=== PATIENT | male | born 1975 | race Caucasian/White ===

== ENCOUNTER → 2017-12-20 | Outpatient (CLI) | payer BC ==
--- NOTE | 2017-12-20 11:31 | CONS ---
CONSULTATION DATE OF SERVICE: 12/20/2017. This 42-year-old gentleman has been evaluated in the sleep center for possible obstructive sleep apnea-hypopnea syndrome. HISTORY OF PRESENT ILLNESS/SLEEP WAKE EVALUATION: Patient usual sleep schedule on working days from around 10 p.m. until 6 a.m. and on the weekends from about 10 p.m. until 7 or 8 a.m. Sometimes he has problem with falling asleep, although no TV in bedroom. He sleeps with his in different positions with loud snoring and witnessed episodes of stopped breathing during the sleep with awakenings up to 10 times from sleep with one episode of nocturia, episodes of grinding teeth, awakenings with dry mouth. In the morning, patient wakes up tired, has difficulties to pay attention, problems with concentration. [place] Sleepiness Scale is 4. Patient had home sleep apnea test about 2 years ago in another institution. The patient has been told that results are borderline. PAST MEDICAL HISTORY: Positive for hypertension, depression, anxiety. PAST SURGICAL HISTORY: Hernia repair. MEDICATIONS: Celexa, hydrochlorothiazide. SOCIAL HISTORY: Negative for smoking or using alcohol at the present time: FAMILY HISTORY: Hypertension, heart problems, hyperlipidemia, stroke, arthritis, asthma, sinus problems, snoring, pneumonia, cancer, bronchitis, acid reflux, diabetes, mental illness, restless legs. REVIEW OF SYSTEMS: Multiple awakenings from sleep. No fevers. No double vision. No recent chest pain. No shortness of breath. No abdominal pain. No bleeding episodes. No blood in urine. No seizure episodes. PHYSICAL EXAM: During physical exam, a gentleman without distress. VITAL SIGNS: BP 145/94, HR 62, RR 16, height 5 feet 7 inches, weight 253, BMI 39.6, temperature 97.9. HEENT: PERRLA, EOMI. Oropharynx, a very small oropharyngeal air space, low soft palate, pillars, tonsils in the throat. Slight restriction of nasal breathing. NECK: Supple, no JVD. Thyroid is not palpable. LUNGS: Clear to percussion and to auscultation. Good air exchange. No wheezing or rhonchi. HEART: S1, S2 regular. No murmurs, gallops, or rubs. ABDOMEN: Obese. EXTREMITIES: No clubbing or cyanosis. STORE SALES CONSULTANT: Awake, alert, and oriented X3. Cranial nerves 2 to 7 intact. There is no fasciculation or atrophy. noted. No focal deficits observed. IMPRESSION: 1. Snoring, witnessed episodes of stopped breathing during the sleep. Small oropharyngeal air space, wide neck 17-1/2 inches, obstructive sleep apnea-hypopnea syndrome. 2. Obesity, body mass index 39.6. 3. Hypertension. 4. History of depression. 5. History of anxiety. 6. Status post hernia repair. PLAN: 1. Polysomnography for evaluation of patient's breathing during sleep. Patient had a home sleep apnea test about 2 years ago. It was borderline. 2. CPAP/BiPAP titration if sleep study confirms obstructive sleep apnea-hypopnea syndrome. 3. Preferable position during sleep on the side. 4. No driving if patient feels any sleepiness. Patient is aware of civil and criminal liability for unsafe driving. 5. I will see patient for follow up visit to explain results of testing and following plan. Thank you very much for referring this patient for consultation. Sincerely, Royal Mcpherson MD, PhD, FAASM Diplomat of [place] [employer] [place] [employer] Manager of [facility] MMODL / IJN: [id number] /
== END | disposition home or self-care (01) ==
LOC: SLEEP 10:01
PROVIDERS: ATTEND Internal Medicine
DX: G47.33 Obstructive sleep apnea (adult) (pediatric) (principal); E66.9 Obesity, unspecified; I10 Essential (primary) hypertension; Z68.39 Body mass index [BMI] 39.0-39.9, adult; Z98.890 Other specified postprocedural states; Z86.59 Personal history of other mental and behavioral disorders; Z79.899 Other long term (current) drug therapy
CPT/HCPCS: 99211

== ENCOUNTER → 2018-04-04 | Outpatient (CLI) | payer BC ==
--- NOTE | 2018-04-04 16:19 | PN ---
PROGRESS NOTE DATE OF SERVICE: 04/04/2018 This patient is a 42-year-old gentleman who has been followed in the sleep center for treatment of obstructive sleep apnea-hypopnea syndrome. Recently patient had a polysomnogram and CPAP titration, and I discussed results of his sleep studies with the patient in detail. He has severe sleep apnea. Subsequently he was started on treatment with CPAP. Today is his first follow-up visit when he comes for followup with his CPAP unit. The patient was able to use CPAP equipment every night without significant problem. He did a little bit of a problem with the humidification, but after adjustments of humidity, he feels fine. He sleeps better with the machine than before. He feels more refreshed in the morning and not sleepy during the day. [place] Sleepiness Scale today is 3. I checked his CPAP unit. It is in automatic regimen between 5 and 18 cm of water. Most of the time pressure is 16.9 cm of water. Leak is 14 L/minute, which is acceptable. Apnea-hypopnea index for the last month was only 3.3, which is totally normal. CURRENT MEDICATIONS: 1. Celexa. 2. Hydrochlorothiazide. PHYSICAL EXAMINATION: GENERAL A pleasant gentleman without distress. VITAL SIGNS: BP 137/78, HR 97, RR 16, weight 266, temperature 98.9, oxygen saturation at room air 97%. HEENT: PERRLA, EOMI. Evaluation of oropharynx showed tongue protrudes midline; extremely low position of soft palate. NECK: Supple. No JVD. Thyroid is not palpable. LUNGS: Clear to percussion and to auscultation. Good air exchange. No wheezing or rhonchi. HEART: S1, S2 regular. No murmurs, gallops or rubs. ABDOMEN: Obese. EXTREMITIES : No clubbing or cyanosis. COST ESTIMATING CLERK: Awake, alert, and oriented X3. Cranial nerves 2 to 7 intact. There is no fasciculation or atrophy. noted. No focal deficits observed. Usage of the machine was 29 out of 30 nights for more than 4 hours, average 6.7 hours. IMPRESSION: 1. Severe obstructive sleep apnea-hypopnea syndrome; apnea-hypopnea index 79.7 with oxygen desaturation to 72.1%, under control with CPAP. Patient demonstrated 100% compliance with treatment, benefitting from treatment. 2. Obesity. 3. Hypertension. 4. History of depression. 5. History of anxiety. 6. Status post hernia repair. PLAN: 1. Patient will continue to use his CPAP equipment every night for the whole night. 2. Losing weight. 3. Sleep hygiene with regular time in bed for at least 8 hours. 4. No driving if feeling any sleepiness. 5. He will follow up with the prescription for all necessary CPAP supplies. 6. Follow-up visit in one year, or earlier if patient has any problems. Thank you very much for allowing me to participate in the management of your patient. Sincerely, Royal Mcpherson MD, PhD, FAASM Diplomat of [place] [employer] [place] Legal Associate of [facility] MMODL / IJN: [id number] /
== END | disposition home or self-care (01) ==
LOC: SLEEP 14:29
PROVIDERS: ATTEND Internal Medicine
DX: G47.33 Obstructive sleep apnea (adult) (pediatric) (principal); E66.9 Obesity, unspecified; I10 Essential (primary) hypertension; F32.9 Major depressive disorder, single episode, unspecified; F41.9 Anxiety disorder, unspecified; Z79.899 Other long term (current) drug therapy; Z98.890 Other specified postprocedural states; Z99.89 Dependence on other enabling machines and devices

== ENCOUNTER 2018-12-17 20:39 | Emergency (ER) | payer BC ==
[2018-12-17] MEDS ORDERED: IPRATROPIUM-ALBUTEROL 3 ML NEB INHALATION STA (21:04)
--- NOTE | 2018-12-17 21:25 | XR ---
EXAMINATION: XR chest 2V DATE AND TIME: 12/17/2018 9:11 PM CLINICAL INDICATION: Worsening dyspnea and cough. TECHNIQUE: Departmental protocol COMPARISON: None FINDINGS: The lungs are nearly entirely clear bilaterally, except for peribronchial added opacity in the retroc ardiac left lower lobe. The pleural spaces are negative. The cardiac silhouette is not enlarged. The remainder of the mediastinal silhouette is unremarkable. The skeletal structures and soft tissues are negative for acute findings. IMPRESSION: FINDINGS SUGGEST BRONCHOPNEUMONIA OF THE LEFT LOWER LOBE. 6 week follow-up chest radiographs could prove resolution.
[2018-12-17] MEDS ORDERED: AZITHROMYCIN 500 MG TAB PO STA (22:13)
--- NOTE | 2018-12-17 22:15 | ED ---
URI HPI - General Chief Complaint: Upper Respiratory Infection Stated Complaint: Flu, chest tightness, SOB Time Seen by Provider: 12/17/18 20:47 Source: patient, family Mode of arrival: wheelchair Limitations: no limitations - History of Present Illness Initial Comments: 43-year-old male patient presents to the emergency department today for complaints of cough, chest tightness, and shortness of breath. Patient states that he began with upper respiratory symptoms on which included cough, nasal congestion, sore throat, and fever. Patient states he was seen and evaluated urgent care on Sunday was diagnosed with influenza A and discharge with prescriptions for steroids and cough remedies. Patient states he has been taking the medications as directed and even started feeling better yesterday however when he woke this morning he had increased chest tightness, worsening cough, and shortness of breath. Patient states he has also had fevers increasing throughout the day. He denies any use of bronchodilators. 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 Denies any sputum production or hemoptysis. Denies any palpitations or racing heart. Patient denies any recent rash, chest pain, abdominal pain, nausea, vomiting, diarrhea, constipation, back pain, numbness, tingling, dizziness, weakness, hematuria, dysuria, urinary urgency, urinary frequency, headache, visual changes, or any other complaints. - Related Data Home Medications Medication Instructions Recorded Confirmed Acetaminophen Tab [Tylenol Tab] 650 mg PO Q4H PRN 12/17/18 12/17/18 Amoxic-Pot Clav 500-125 mg 1 tab PO TID 12/17/18 12/17/18 [Augmentin 500-125 mg] Citalopram Hydrobromide [CeleXA] 20 mg PO DAILY 12/17/18 12/17/18 Dextromethorphan Polistirex 60 mg PO HS PRN 12/17/18 12/17/18 [Delsym] Fluticasone Nasal Lula [Flonase 1 spray EA NOSTRIL BID 12/17/18 12/17/18 Nasal Lula] Hydrochlorothiazide [Hydrodiuril] 25 mg PO DAILY 12/17/18 12/17/18 Ibuprofen [Motrin Ib] 800 mg PO Q4H PRN 12/17/18 12/17/18 guaiFENesin [Mucinex] 600 mg PO DAILY PRN 12/17/18 12/17/18 predniSONE 40 mg PO DAILY 12/17/18 12/17/18 Previous Rx's Medication Instructions Recorded Albuterol Sulfate [Proair Hfa] 1 - 2 puff INHALATION Q6HR PRN #1 12/17/18 inhaler Azithromycin [Zithromax Z-pack] 0 mg PO DIRECTED #6 tab 12/17/18 Ipratropium-Albuterol Nebulize 3 ml INHALATION Q4H PRN #30 neb 12/17/18 [Duoneb 0.5 mg-3 mg/3 ml Soln] Allergies Allergy/AdvReac Type Severity Reaction Status Date / Time No Known Allergies Allergy Verified 12/17/18 21:58 Review of Systems ROS Statement: Those systems with pertinent positive or pertinent negative responses have been documented in the HPI. ROS Other: All systems not noted in ROS Statement are negative. Past Medical History Past Medical History: Hypertension History of Any Multi-Drug Resistant Organisms: None Reported Past Surgical History: Hernia Repair Past Psychological History: Depression Smoking Status: Former smoker Past Alcohol Use History: None Reported Past Drug Use History: None Reported General Exam Limitations: no limitations General appearance: alert, in no apparent distress, other (This is a well- developed, well-nourished adult male patient in no acute distress. Vital signs upon presentation are temperature 99.4F, pulse 78, respirations 20, blood pressure 151/90, pulse ox 95% on room air.) Eye exam: Present: normal appearance, PERRL, EOMI. Absent: scleral icterus, conjunctival injection, periorbital swelling ENT exam: Present: normal exam, normal oropharynx, mucous membranes moist, TM's normal bilaterally Neck exam: Present: normal inspection. Absent: tenderness, meningismus, lymphadenopathy Respiratory exam: Present: normal lung sounds bilaterally. Absent: respiratory distress, wheezes, rales, rhonchi, stridor Cardiovascular Exam: Present: regular rate, normal rhythm, normal heart sounds. Absent: systolic murmur, diastolic murmur, rubs, gallop, clicks GI/Abdominal exam: Present: soft, normal bowel sounds. Absent: distended, tenderness, guarding, rebound, rigid Neurological exam: Present: alert, oriented X3, CN II-XII intact Psychiatric exam: Present: normal affect, normal mood Skin exam: Present: warm, dry, intact, normal color. Absent: rash Course Vital Signs 12/17/18 12/17/18 12/17/18 20:40 21:20 21:26 Temperature 99.4 F Pulse Rate 78 72 Respiratory 20 16 Rate Blood Pressure 151/90 O2 Sat by Pulse 95 Oximetry 12/17/18 12/17/18 21:36 22:40 Temperature 98.9 F Pulse Rate 75 63 Respiratory 20 Rate Blood Pressure 136/82 O2 Sat by Pulse 99 Oximetry Medical Decision Making - Medical Decision Making 43-year-old male patient presented to the emergency department today for evaluation of increasing shortness of breath and cough after being diagnosed with influenza. Physical examination was relatively unremarkable, lungs are clear to auscultation with good air movement. Did obtain a chest x-ray which did show evidence for left lower lobe bronchopneumonia. Patient was given a breathing treatment here in the department. We will start patient on azithromycin give prescription for Pro Air inhaler and DuoNeb breathing treatments for home. He is instructed to complete steroid prescription as given by the urgent care. He is instructed to complete antibiotic prescription in full. He is instructed to follow-up with his primary care physician for recheck in 1-2 days. Return parameters were discussed in detail. He verbalizes understanding and agrees with this plan. - Radiology Data Radiology results: report reviewed, image reviewed Two-view x-ray of the chest is obtained. Report was reviewed in its entirety. Impression by Dr. Lisa Fontenot shows findings suggestive of bronchopneumonia of the left lower lobe. Disposition Clinical Impression: Bronchopneumonia Disposition: HOME SELF-CARE Condition: Good Instructions (If sedation given, give patient instructions): Pneumonia (ED) Additional Instructions: Complete antibiotic prescription and full. Follow-up with her primary care physician for recheck in 1-2 days. Return to the emergency department immediately for any new, worsening, or concerning symptoms. Prescriptions: Albuterol Sulfate [Proair Hfa] 1 - 2 puff INHALATION Q6HR PRN #1 inhaler PRN Reason: Shortness Of Breath Azithromycin [Zithromax Z-pack] 0 mg PO DIRECTED #6 tab Ipratropium-Albuterol Nebulize [Duoneb 0.5 mg-3 mg/3 ml Soln] 3 ml INHALATION Q4H PRN #30 neb PRN Reason: Shortness Of Breath Is patient prescribed a controlled substance at d/c from ED?: No Referrals: Benedict Grant III, MD [Primary Care Provider] - 1-2 days Time of Disposition: 22:15
[2018-12-17 22:54] VITALS: BP 136/82; PULSE 63; RESP 20; TEMP 98.9
== END 2018-12-17 22:40 | disposition home or self-care (01) ==
LOC: EC 20:39
DX: J18.0 Bronchopneumonia, unspecified organism (principal); J10.08 Influenza due to other identified influenza virus with other specified pneumonia; I10 Essential (primary) hypertension; F32.9 Major depressive disorder, single episode, unspecified; Z87.891 Personal history of nicotine dependence; Z79.51 Long term (current) use of inhaled steroids; Z79.52 Long term (current) use of systemic steroids; Z79.899 Other long term (current) drug therapy
CPT/HCPCS: 71046; 94640; 99285